=== PATIENT | female | born 1950 ===

== ENCOUNTER 2021-07-23 08:40 | Outpatient (CLI) | payer OTHER | END 2021-07-23 10:18 | disposition home or self-care (01) | LOC: SONOGRAMA 08:40 | PROVIDERS: ATTEND Pathology Anatomic Pathology & Clinical Pathology | DX: D34 Benign neoplasm of thyroid gland (principal); E04.8 Other specified nontoxic goiter; E07.89 Other specified disorders of thyroid ==